=== PATIENT | female | born 1980 | race Asian ===

== ENCOUNTER 2018-03-08 09:55 | Day surgery (SDC) | payer BC ==
[~2018-03-08] VITALS: Ht 157.5 cm; Wt 77.1 kg
--- NOTE | 2018-03-08 10:00 | NUR ---
REFUSED MRSA SMEAR.
--- NOTE | 2018-03-08 10:00 | NUR ---
ADM. TO RM. 316-2 FOR SURGERY TODAY.NPO SINCE MIDNIGHT WITH EXCEPTION OF 2 OZS WATER AT 1000 AM.VS GINNY,DENIES PAIN OR DISCOMFORT.
--- NOTE | 2018-03-08 10:15 | NUR ---
IV STARTED RT HAND #20 ANGIO.
[2018-03-08 11:38] VITALS: BP 128/83
[2018-03-08] MEDS ORDERED: Sodium Chloride 4 MEQ/ML VIAL IV ONE (11:47)
[2018-03-08 11:51] LABS: BASOPHILS % (AUTO) 0.6 % (0.0-2.0); EOSINOPHILS % (AUTO) 1.9 % (0.0-6.0); HEMATOCRIT 38 % (33-45); HEMOGLOBIN 12.8 g/dL (11.5-14.8); LYMPHOCYTES # (AUTO) 1.5 /CMM (0.8-4.8); LYMPHOCYTES % (AUTO) 22.6 % (20.0-44.0); MEAN CORPUSCULAR HGB CONC 34 g/dl (31.0-36.0); MEAN CORPUSCULAR VOLUME 91 fL (82-100); MONOCYTES # (AUTO) 0.4 /CMM (0.1-1.30); MONOCYTES % (AUTO) 6.9 % (2.0-12.0); NEUTROPHILS # (AUTO) 4.4 /CMM (1.8-8.9); PLATELET COUNT (AUTO) 234 /CMM (150-450); RDW COEFFICIENT OF VARIATION 12.8 (11.5-15.0); RED BLOOD CELL COUNT(AUTO) 4.15 MIL/uL (4.0-5.2); WHITE BLOOD COUNT (AUTO) 6.4 K/uL (4.3-11.0)
[2018-03-08] MEDS ORDERED: HYDROMORPHONE INJ 2 MG/ML DISP.SYRIN ONE (11:57)
[2018-03-08] MEDS ORDERED: MIDAZOLAM HCL 2 MG/2ML VIAL ONE (11:57)
[2018-03-08] MEDS ORDERED: BUPIVACAINE MPF 0.5% W/EPI INJ 30 ML VIAL ONE (12:08)
[2018-03-08] MEDS ORDERED: LIDOCAINE 1% INJ 50 ML MDV IJ ONE (12:11)
[2018-03-08] MEDS ORDERED: METRONIDAZOLE 500MG/ NS 100ML 100 ML IV ONE (12:48)
[2018-03-08] MEDS ORDERED: THROMBIN (BOVINE) 5,000 UNITS VIAL TP ONE ×2 (12:56→13:01)
[2018-03-08] MEDS ORDERED: GELATIN SPONGE,ABSORBABLE 1 EA SPONGE TP ONE (13:01)
[2018-03-08] MEDS ORDERED: ONDANSETRON HCL/PF 4 MG/2 ML VIAL IVP PRN (13:30)
[2018-03-08] MEDS ORDERED: HYDROMORPHONE INJ 2 MG/ML DISP.SYRIN IV PRN (13:30)
--- NOTE | 2018-03-08 14:20 | NUR ---
RETURNED TO . DRESSING DRY AND INTACT.VS TAKEN AND STABLE.IV INFUSING,A LITTLE GROGGY.INSTRUCTED TO CALL FOR HELP AND NOT TO GET OOB ALONE.VERB. UNDERSTANDING.FRIEND ACCOMPANYING PT. ON ADMIT CALLING.
--- NOTE | 2018-03-08 16:00 | NUR ---
UP TO BATHRM. WITH ASSIST.VOIDED.EATING CUSTARD AND JELLO,NO COMPLAINTS OFFERED.
--- NOTE | 2018-03-08 17:40 | NUR ---
DC INSTRUCTIONS GIVEN,FRIEND AT BEDSIDE REVIEW OF USE OF SITZ BATH PROVIDED.RXS GIVEN,HEP LOCK OUT.TAKEN VIA W/CHAIR TO LOBBY,ACCOMPANIED BY FRIEND AND CIAIO LUMITE INJECTOR.
== END 2018-03-08 18:00 | disposition home or self-care (01) ==
LOC: DS 09:55 → UNDOADMIN 09:57 → MED 09:57 → UNDODISIN 17:40 → DS 18:00
PROVIDERS: ATTEND Surgery
DX: K64.8 Other hemorrhoids (principal); K64.4 Residual hemorrhoidal skin tags; K61.0 Anal abscess; Z98.890 Other specified postprocedural states; Z79.899 Other long term (current) drug therapy
CPT/HCPCS: 36415; 46050; 46260; 84703; 85025; 88304; 88312; J1170; J2250; J3490 ×3; A6402; A6403; G0378; J0690; J1100; J1200; J2405; J2704; Z7610